=== PATIENT | male | born 2000 | race African-American/Black ===

== ENCOUNTER 2021-08-24 15:10 | Emergency (ER) | payer OTHER ==
[2021-08-24 15:37] VITALS: TEMP 98.1; BMI 27.1
[2021-08-24] MEDS ORDERED: SODIUM CHLORIDE 0.9% 500 ML INFUS.BAG IV ONE (16:21)
[2021-08-24 16:57] LABS: EPI CELLS 14 /uL (0-25.1); HYALINE CASTS 3 /uL (0-3.1); URINE APPEARANCE TURBID; URINE BACTERIA 1 /uL (0-1359); URINE BILIRUBIN NEGATIVE (NEGATIVE); URINE COLOR RED; URINE GLUCOSE (UA) NEGATIVE (NEGATIVE); URINE KETONE NEGATIVE (NEGATIVE); URINE LEUK ESTERASE 2+ (NEGATIVE); URINE NITRITE NEGATIVE (NEGATIVE); URINE PROTEIN 2+ (NEGATIVE); URINE RBC 21007 /uL (0-23.9); URINE WBC 62 /uL (0-25.8)
[2021-08-24 17:07] LABS: BASO % 0.6 % (0-2.0); EOS % 0.3 % (0-4.5); HEMOGLOBIN 13.5 GM/dL (11.7-16.9); LYMPH % 19.5 % (8-40); MCH 26.4 pg (25.7-33.7); MCHC 32.2 g/dl (32.0-35.9); MEAN PLT VOLUME 9.7 fl (7.5-11.1); MONO % 7.3 % (3.8-10.2); NEUT % 72.3 % (42.8-82.8); PLATELET COUNT 240 10^3/uL (134-434); RBC 5.12 M/mm3 (4.00-5.60); RDW 14.9 % (11.9-15.9); WHITE BLOOD COUNT 12.2 K/mm3 (4.0-10.0)
[2021-08-24 17:26] LABS: CALCIUM 9.4 mg/dL (8.5-10.1)
[2021-08-24 17:29] LABS: CREATININE 0.8 mg/dL (0.55-1.3)
[2021-08-24 17:31] LABS: BILIRUBIN,TOTAL 0.3 mg/dL (0.2-1); TOT PROT 7.4 g/dl (6.4-8.2)
[2021-08-24 19:42] VITALS: BP 122/70; PULSE 86
== END 2021-08-24 19:42 | disposition home or self-care (01) ==
LOC: JER 15:10
DX: R31.9 Hematuria, unspecified (principal); N39.0 Urinary tract infection, site not specified
CPT/HCPCS: 36415; 76775-TC; 80053; 81003; 82550; 85025; 87086; 99284-25

== ENCOUNTER 2022-09-01 20:12 | Emergency (ER) | payer OTHER ==
[2022-09-01 20:21] VITALS: BP 154/81; PULSE 85; RESP 18; TEMP 99.1; BMI 25.4
== END 2022-09-01 20:54 | disposition home or self-care (01) ==
LOC: JERFT 20:12
DX: S50.12XA Contusion of left forearm, initial encounter (principal); S50.812A Abrasion of left forearm, initial encounter; W19.XXXA Unspecified fall, initial encounter; Y93.A1 Activity, exercise machines primarily for cardiorespiratory conditioning
CPT/HCPCS: 99282-25